=== PATIENT | male | born 1990 | race Caucasian/White ===

== ENCOUNTER 2016-12-11 16:20 | Emergency (ER) | payer SELFPAY ==
[~2016-12-11] VITALS: Ht 182.9 cm; Wt 86.2 kg
[2016-12-11 17:06] VITALS: BP 131/89
== END 2016-12-11 17:21 | disposition home or self-care (01) ==
LOC: ER 16:29
DX: H66.91 Otitis media, unspecified, right ear (principal); J02.9 Acute pharyngitis, unspecified